=== PATIENT | female | born 1980 | race African-American/Black ===

== ENCOUNTER 2022-03-10 15:19 | Emergency (ER) | payer OTHER ==
[~2022-03-10] VITALS: Ht 165.1 cm; Wt 68.5 kg
--- NOTE | 2022-03-10 15:27 | NUR ---
The patient bib boyfriend for c/o panic attack off meds x 2 weeks. Denies SI/HI. Denies having visual or auditory hallucinations. In room air and denies SOB. Respiration regular and unlabored. Will continue to monitor the patient.
[2022-03-10] MEDS ORDERED: LORAZEPAM 1 MG TABLET ONE (15:31)
[2022-03-10] MEDS: LORAZEPAM 1 MG TABLET PO ONE (15:33)
[2022-03-10 15:45] VITALS: BP 116/76
--- NOTE | 2022-03-10 15:45 | NUR ---
Patient discharged to home in stable condition. Written and verbal after care instructions given. Patient verbalizes understanding of instruction.
== END 2022-03-10 15:46 | disposition home or self-care (01) ==
LOC: ER 15:26
DX: F41.9 Anxiety disorder, unspecified (principal); Z76.0 Encounter for issue of repeat prescription; Z88.2 Allergy status to sulfonamides